=== PATIENT | female | born 1960 | race Caucasian/White ===

== ENCOUNTER 2020-04-19 02:27 | Observation (INO) | payer BC, SELFPAY ==
[2020-04-19] VITALS (18 sets, daily range): BP systolic 82–136; BP diastolic 41–89; PULSE 60–133; RESP 16–22; TEMP 36.3–37.6; O2SAT 98–100; BMI 41.8
--- NOTE | ~2020-04-19 | CT_ITS ---
EXAMINATION: CT abdomen pelvis w con DATE: 04/19/2020 03:29 INDICATION: Generalized abdominal pain. Blood in stool. TECHNIQUE: Computed tomography (CT) of the abdomen and pelvis was performed with 100 mL Omnipaque 350 intravenous contrast. Automated exposure control and iterative reconstruction technique were employe d. The dose-length product was 1481.64 mGy-cm. COMPARISON: CT abdomen and pelvis 07/16/2019, chest CT 12/10/2016 FINDINGS: The visualized portions of the lung bases demonstrate mild atelectasis. Again seen are innu merable pulmonary nodules measuring up to 4 mm, consistent with granulomatous disease. No pleural eff usion. The heart size is normal. No pericardial effusion. There is a small sliding hiatal hernia. The re is surgical changes of the stomach. The liver is normal. There are changes of cholecystectomy. The spleen, pancreas, adrenal glands, and kidneys are normal. There are no dilated loops of bowel. The a ppendix is not visualized. There are no pathologically enlarged lymph nodes. There is no free intrape ritoneal fluid. There is lumbar levocurvature and severe spondylosis. There are bridging endplate ost eophytes at multiple levels in the thoracic spine, consistent with diffuse idiopathic skeletal hypero stosis (DISH). IMPRESSION: 1. Small sliding hiatal hernia. Reviewed, dictated and finalized at location A.
--- NOTE | ~2020-04-19 | XR_ITS ---
EXAMINATION: XR small bowel follow through DATE: 04/20/2020 15:25 INDICATION: Gastrointestinal hemorrhage. TECHNIQUE: Oral contrast was administered, and a time course of radiographs of the abdomen was obtain ed. Fluoroscopy of the small bowel was performed. Fluoroscopy exposure time was 0.1 minutes. The tota l number of images was 14. COMPARISON: CT abdomen and pelvis 04/19/2020 FINDINGS: There are no dilated loops of bowel. There is no mass or stricture. There are changes of gastric bypa ss procedure. Transit time from the stomach to proximal colon was approximately 1.5 hours. IMPRESSION: 1. No etiology for gastrointestinal hemorrhage. Reviewed, dictated and finalized at location A.
--- NOTE | 2020-04-19 02:36 | ECG_ITS ---
Measurements Intervals [place] Rate: 124 P: CT: 0 QRS: 23 QRSD: 102 T: 67 QT: 318 QTc: 457 Interpretive Statements SINUS TACHYCARDIA EARLY PRECORDIAL R/S TRANSITION BASELINE ARTIFACT- I, III, AVL ABNORMAL ECG Electronically Signed On 04-19-2020 7:01:48 CDT by Coy Vizcaino D.O.
--- NOTE | 2020-04-19 02:36 | ED.GIBLEED ---
HPI - GI Bleed General Chief complaint: GI Bleed Stated complaint: sob, bloody stool, dizzy, abd pain Time Seen by Provider: 04/19/20 02:30 Source: RN notes reviewed History of Present Illness HPI Narrative: Patient presents emergency department from home for blood in stool. Patient states she is had 3 episodes of black tarry stool is had some blood mixed in this evening. States is associated with lower abdominal pain described as cramping. Patient states she is on Xarelto for history of DVT and PE denies any fevers or chills chest pain shortness of breath or any other symptoms Related Data Home Medications Medication Instructions Recorded Confirmed alprazolam 04/19/20 bupropion HCl mg PO 04/19/20 citalopram mg 04/19/20 ergocalciferol (vitamin D2) 04/19/20 gabapentin 04/19/20 hydrocodone-acetaminophen 04/19/20 lamotrigine 04/19/20 prednisone 04/19/20 rivaroxaban [Xarelto] mg 04/19/20 ropinirole mg 04/19/20 Allergies Allergy/AdvReac Type Severity Reaction Status Date / Time morphine Allergy Severe CHEST Verified 04/19/20 02:29 PAIN, VIOLENT NAUSEA AND VOMITING Review of Systems Review of Systems: Narrative: Gen.: Denies fevers or chills ENT: Denies congestion Respiratory: Denies shortness of breath or cough CV: Denies chest pain or palpitations GI: See HPI Musculoskeletal: Denies back pain or muscle pain Neuro: Denies numbness, tingling, weakness or focal weakness Skin: Denies rash Except as documented, all other systems reviewed and negative [facility] Past Medical History Medical History (Updated 04/19/20 @ 06:04 by Jonathon Pierre DO) Bipolar 1 disorder Pulmonary embolism Family History Family History (Updated 02/20/17 @ 23:56 by DOCTOR UNKNOWN) Father Hypertension Family history of elevated blood lipids Family history of diabetes mellitus in first degree relative Family history of coronary artery disease Patient's father is Family history of malignant neoplasm of esophagus Mother Hypertension Family history of elevated blood lipids Family history of diabetes mellitus in first degree relative Family history of coronary artery disease, Onset Age: 55 Patient's mother is Family history of congestive heart failure Sibling Hypertension Family history of elevated blood lipids Grandparent Cerebrovascular accident, Onset Age: 79 Carcinoma of colon, Onset Age: 35 Other Family history of tuberculosis Social History Social History (Updated 04/19/20 @ 02:38 by Jonathon Pierre DO) Smoking status: Former smoker Second hand tobacco smoke exposure: No Smoking end date: 11/16/02 Alcohol intake: never Exam Narrative: Exam Narrative: APPEARANCE: No acute distress, nontoxic, resting in bed HEENT: Normocephalic, atraumatic, OMM RESPIRATORY: No respiratory distress, clear to auscultation bilaterally with no rhonchi wheezing or rales CARDIOVASCULAR: RRR s murmur ABDOMINAL: Soft, nondistended diffusely tender to palpation no rebound or guarding Rectal: No hemorrhoids or fissures no active bleeding moderate amount of black stool that is Hemoccult positive MUSCULOSKELETAl: Moves all extremities. No clubbing, cyanosis or edema. NEURO: Awake and alert. Following commands, speech normal, no focal deficits SKIN:: Warm, dry. Normal Color PSYCHIATRIC: Normal affect/mood Course Course Emergency Course: Discussed with Dr. Duran presentation work-up. Agrees with consult at this time Discussed Dr. Rojas presentation work-up. Agrees with admission at this time Discussed with patient and family results of workup and diagnosis. Discussed need for admission. Patient and family understand and agree to current treatment plan Vital Signs Vital signs: Vital Signs Temperature 98.9 F 04/19/20 02:31 Pulse Rate 133 H 04/19/20 02:31 Respiratory Rate 20 04/19/20 02:31 Blood Pressure 105/65 04/19/20 02:31 Pulse
[2020-04-19] MEDS: SODIUM CHLORIDE 0.9% IV 1,000 ML 999 ML IV CONT ×2 (02:47→03:45)
[2020-04-19 02:54] LABS: Basophils Absolute Auto 0.1 K/mm3 (0.0-0.1); Basophils Percent Auto 0.8 % (0.2-1.2); Eosinophils Absolute Auto 0.2 K/mm3 (0-0.3); Eosinophils Percent Auto 1.4 % (0-4.4); Hematocrit 36.2 % (37.0-47.0); Hemoglobin 11.9 g/dL (12.0-15.0); Immature Granulocyte Absolute 0.14 K/mm3 (0.00-0.031); Immature Granulocyte Percent A 1.2 % (0-0.5); Lymphocytes Percent Auto 39.8 % (18.3-44.2); Mean Corpuscular HGB Conc 32.9 g/dl (32-36); Mean Corpuscular Hemoglobin 30.5 pg (26-34); Mean Corpuscular Volume 92.8 fl (80-100); Monocytes Absolute Auto 0.5 K/mm3 (0.1-0.6); Monocytes Percent Auto 4.7 % (2.6-8.5); Neutrophils Percent Auto 52.1 % (45.5-73.1); Platelet Count Result 290 k/mm3 (150-375); Red Cell Distribution Width 14.5 % (11.5-14.5); White Blood Count 11.6 K/mm3 (4.5-10.0)
[2020-04-19 03:07] LABS: Alanine Aminotransferase 18 U/L (4-35); Albumin Level 3.6 g/dL (3.5-5.1); Alkaline Phosphatase 74 U/L (38-126); Aspartate Amino Transferase 21 U/L (14-36); Bilirubin,Total 0.5 mg/dL (0.2-1.3); Blood Urea Nitrogen 31 mg/dL (7-17); Calcium 8.7 mg/dL (8.4-10.2); Carbon Dioxide 20 mmol/L (22-30); Chloride 109 mmol/L (98-107); Estimated CRCL calculation 96 ml/min; Estimated Glomerular Filt Rate > 60; Glucose 163 mg/dL (65-105); Lipase 267 U/L (23-300); Potassium 3.9 mmol/L (3.4-5.0); Sodium 137 mmol/L (137-145)
[2020-04-19 03:08] LABS: Lactic Acid Reflex 3.9 mmol/L (0.7-2.1)
[2020-04-19 03:10] LABS: Prothrombin Time 13.1 Seconds (11.1-14.7)
[2020-04-19 03:12] LABS: Partial Thromboplastin Time 22.6 SECONDS (22.3-36.8)
[2020-04-19] MEDS: ONDANSETRON INJ 4 MG/2 ML VIAL (03:45)
[2020-04-19 04:51] LABS: Add Urine Microscopic? NO; Appearance Urine Clear (Clear); Bilirubin Urine Negative (Negative); Blood Urine Negative (Negative); Color Urine Straw (Yellow); Glucose Urine UA Negative (Negative); Ketones Urine Negative (Negative); Leukocyte Esterase Ur Negative LEU/UL (Negative); Nitrate Urine Negative (Negative); Protein Urine Negative (Negative); Urobilinogen Urine Negative mg/dL (<2.0)
[2020-04-19 05:01] LABS: Specific Grav Ur 1.051 (1.001-1.035)
[2020-04-19] MEDS: PANTOPRAZOLE SODIUM IV 40 MG VIAL IV PUSH (05:29)
[2020-04-19] MEDS: MORPHINE SULFATE 2 MG/ML INJ IV PUSH (05:29)
[2020-04-19 05:51] LABS: Reflex Lactic Acid Yes or No Add Lactic
[2020-04-19] MEDS: SODIUM CHLORIDE 0.9% IV 1,000 ML 125 ML IV CONT ×2 (06:39→16:05)
--- NOTE | 2020-04-19 06:53 | ADMGEN ---
This patient, Hussain Hankins, was admitted to [facility] Surg Room 324-02. Patient/family oriented to hospital policies and general routines including ID bracelet, bed and alarms, visiting hours, pain management, procedures, bathroom and other care routines, personal items, smoking policy, room service/diet, and visiting hours. Valuables list has been completed. Information on how to activate the Rapid Response Team has been discussed. Patient/Family are encouraged to report perceived risks to care and to ask questions if they do not understand what they are told or what they should do.
[2020-04-19 07:14] LABS: Hematocrit 29.3 % (37.0-47.0); Hemoglobin 9.7 g/dL (12.0-15.0)
[2020-04-19 07:28] LABS: Lactic Acid 0.9 mmol/L (0.7-2.1)
--- NOTE | 2020-04-19 08:13 | WPDGICN ---
Assessment and Plan Assessment and plan (1) GI bleed: Code(s): K92.2 - Gastrointestinal hemorrhage, unspecified Status: Acute Assessment and Plan: Patient has had GI bleeding. Appears to be related to upper GI source given the black melenic stools. Plan is for proton pump inhibitor therapy. Follow hemoglobin. An EGD will be planned. Elective colonoscopy for screening is advised a a later date less EGD is non fruitful. (2) Bipolar 1 disorder: Code(s): F31.9 - Bipolar disorder, unspecified Status: Acute (3) History of gastric bypass: Code(s): Z98.84 - Bariatric surgery status Status: Acute GI Consult Note Consult date/time: 04/19/20 08:13 HPI: Hussain Hankins is a 59 year old female Seen in evaluation at the request of the hospitalist service. Patient in usual state of health until last evening when she began to pass black melenic stools. she has continued to have black diarrhea stools throughout the evening. For this reason she presented to the emergency room. She was found to have slightly decreased hemoglobin and Hemoccult-positive melenic stools. She denies abdominal pain. Her past medical history is significant for gastric bypass surgery many years ago. Patient has a past history of back pain recently was on a tapering dose of prednisone. Family history is noncontributory. Review of Systems Review of Systems: All systems reviewed & are unremarkable except as noted in HPI and below PMFSH Past Medical History Medical History Bipolar 1 disorder Pulmonary embolism Family History Family History Father Hypertension Family history of elevated blood lipids Family history of diabetes mellitus in first degree relative Family history of coronary artery disease Patient's father is Family history of malignant neoplasm of esophagus Mother Hypertension Family history of elevated blood lipids Family history of diabetes mellitus in first degree relative Family history of coronary artery disease, Onset Age: 55 Patient's mother is Family history of congestive heart failure Sibling Hypertension Family history of elevated blood lipids Grandparent Cerebrovascular accident, Onset Age: 79 Carcinoma of colon, Onset Age: 35 Other Family history of tuberculosis Social History Social History Smoking status: Former smoker Second hand tobacco smoke exposure: No Smoking end date: 11/16/02 Alcohol intake: never Substance use: never Gender identity (if verbalized by the patient): Female Spiritual care concerns: No Meds Home Medications and Allergies Home Medications Medication Instructions Recorded Confirmed Type alprazolam 0.25 mg PO Q6H PRN 04/19/20 04/19/20 History bupropion HCl 450 mg PO DAILY 04/19/20 04/19/20 History citalopram 40 mg PO HS 04/19/20 04/19/20 History cyanocobalamin (vitamin B-12) 2,000 mcg PO HS 04/19/20 04/19/20 History ergocalciferol (vitamin D2) 80,000 unit PO WEEKLY 04/19/20 04/19/20 History gabapentin 300 mg PO HS 04/19/20 04/19/20 History hydrocodone-acetaminophen 0.5 tablet PO Q4H PRN 04/19/20 04/19/20 History lamotrigine 100 mg PO HS 04/19/20 04/19/20 History prednisone 10 mg PO DAILY 04/19/20 04/19/20 History rivaroxaban [Xarelto] 10 mg PO HS 04/19/20 04/19/20 History ropinirole 1 mg PO HS 04/19/20 04/19/20 History Allergies Allergy/AdvReac Type Severity Reaction Status Date / Time morphine Allergy Severe CHEST Verified 04/19/20 02:29 PAIN, VIOLENT NAUSEA AND VOMITING Vital Signs Vital Signs - 24 hr 04/19/20 02:31 04/19/20 03:17 04/19/20 03:44 Temperature 37.2 C Pulse Rate 133 H 111 H 80 Respiratory Rate 20 22 H 18 Blood Pressure 105/65 100/59 L 126/56 L Pulse Oximetry 100 100 100 0
--- NOTE | 2020-04-19 09:02 | PC.NURSE ---
to GI lab per stretcher. iv running.
[2020-04-19] MEDS: LACTATED RINGERS 1,000 ML 150 ML IV CONT (09:32)
--- NOTE | 2020-04-19 09:36 | WPDANESEPPF ---
Anes - Initial Pre Proc Eval Procedure: Operation Date: 04/19/20 09:00 Proposed Procedures p Esophagogastroduodenoscopy - Luis Duran MD Date/Time: 04/19/20 09:36 Surgeon: Tala Rojas DO Pre Op Diagnosis: GI bleed, R sided kidney stone Patient Data Age: 59 Gender: F Height: 5 ft 9 in Weight: 128.6 kg Last Vital Signs Temp 97.3 F L 04/19/20 09:15 Pulse 70 04/19/20 09:15 Resp 16 04/19/20 09:15 BP 126/56 L 04/19/20 09:15 Pulse Ox 99 04/19/20 09:15 Allergies Allergy/AdvReac Type Severity Reaction Status Date / Time morphine Allergy Severe CHEST Verified 04/19/20 09:21 PAIN, VIOLENT NAUSEA AND VOMITING Home Medications Medication Instructions Recorded Confirmed Type alprazolam 0.25 mg PO Q6H PRN 04/19/20 04/19/20 History bupropion HCl 450 mg PO DAILY 04/19/20 04/19/20 History citalopram 40 mg PO HS 04/19/20 04/19/20 History cyanocobalamin (vitamin B-12) 2,000 mcg PO HS 04/19/20 04/19/20 History ergocalciferol (vitamin D2) 80,000 unit PO WEEKLY 04/19/20 04/19/20 History gabapentin 300 mg PO HS 04/19/20 04/19/20 History hydrocodone-acetaminophen 0.5 tablet PO Q4H PRN 04/19/20 04/19/20 History lamotrigine 100 mg PO HS 04/19/20 04/19/20 History prednisone 10 mg PO DAILY 04/19/20 04/19/20 History rivaroxaban [Xarelto] 10 mg PO HS 04/19/20 04/19/20 History ropinirole 1 mg PO HS 04/19/20 04/19/20 History Laboratory Tests 04/19/20 04/19/20 04/19/20 02:45 02:45 02:45 WBC 11.6 K/mm3 H K/mm3 (4.5-10.0) RBC 3.90 M/mm3 L M/mm3 (4.2-5.4) Hgb 11.9 g/dL L g/dL (12.0-15.0) Hct 36.2 % L % (37.0-47.0) MCV 92.8 fl fl (80-100) MCH 30.5 pg pg (26-34) MCHC 32.9 g/dl g/dl (32-36) RDW 14.5 % % (11.5-14.5) Plt Count 290 k/mm3 k/mm3 (150-375) MPV 11.0 fl H fl (7.4-10.4) Immature Gran % (Auto) 1.2 % H % (0-0.5) Neut % (Auto) 52.1 % % (45.5-73.1) Lymph % (Auto) 39.8 % % (18.3-44.2) [place] % (Auto) 4.7 % % (2.6-8.5) Eos % (Auto) 1.4 % % (0-4.4) Baso % (Auto) 0.8 % % (0.2-1.2) Lymph # (Auto) 4.60 K/mm3 H K/mm3 (0.9-3.2) [place] # (Auto) 0.5 K/mm3 K/mm3 (0.1-0.6) Eos # (Auto) 0.2 K/mm3 K/mm3 (0-0.3) Baso # (Auto) 0.1 K/mm3 K/mm3 (0.0-0.1) Abs Immat Gran (auto) 0.14 K/mm3 H K/mm3 (0.00-0.031) Absolute Neuts (auto) 6.0 K/mm3 K/mm3 (1.3-6.7) Absolute Nucleated RBC 0.0 K/mm3 K/mm3 (0.0-0.012) Nucleated RBC % 0.0 % % (0.0-0.2) PT 13.1 Seconds Seconds (11.1-14.7) INR 1.0 APTT 22.6 SECONDS SECONDS (22.3-36.8) Sodium 137 mmol/L mmol/L (137-145) Potassium 3.9 mmol/L mmol/L (3.4-5.0) Chloride 109 mmol/L H mmol/L (98-107) Carbon Dioxide 20 mmol/L L mmol/L (22-30) BUN 31 mg/dL H mg/dL (7-17) Creatinine 0.80 mg/dL mg/dL (0.7-1.0) Estim Creat Clear Calc 96 ml/min ml/min Estimated GFR > 60 (59 - ) Glucose 163 mg/dL H mg/dL (65-105) Lactic Acid Calcium 8.7 mg/dL mg/dL (8.4-10.2) Total Bilirubin 0.5 mg/dL mg/dL (0.2-1.3) AST 21 U/L U/L (14-36) ALT 18 U/L U/L (4-35) Alkaline Phosphatase 74 U/L U/L (38-126) Total Protein 6.0 g/dL L g/dL (6.3-8.2) Albumin 3.6 g/dL g/dL (3.5-5.1) Lipase 267 U/L U/L (23-300) Urine Color Urine Appearance Urine pH Ur Specific [place] Urine Protein Urine Glucose (UA) Urine Ketones Ur Blood (Man) Urine Nitrate Urine Bilirubin Urine Urobilinogen Leukocyte Esterase Rfl Blood Type Antibody Screen
[2020-04-19] MEDS: SIMETHICONE ORAL SUSPENSION 20 MG/0.3 ML 30 ML BOTTLE 0.6 ML PO (09:56)
--- NOTE | 2020-04-19 10:55 | PC.NURSE ---
patient returned to room from GI lab
--- NOTE | 2020-04-19 11:37 | PM.IMHP ---
H&P: HPI History of Present Illness Chief complaint: GI bleed, R sided kidney stone Narrative: Date and Time of History and Physical: April 19, 2020 at 10:55 a.m.. Date and Time of Placement in Observation Order: April 19, 2020 at 5:56 a.m.. Chief Complaint: Diarrhea with black and bloody stools. History of Present Illness: Hussain Hankins is a 59 year old female with known previous gastric bypass, bipolar disorder, chronic back issues and history kidney stones presented to the emergency room with onset diarrhea yesterday. Patient reports stool initially was black but by the 3rd episode of diarrhea she noted blood in the stool. She does mention having ongoing problems with her back within the past week and was started on a prednisone taper by Dr. La, her primary physician. She reports 4 days into the prednisone taper she developed the diarrhea. She also reports a soreness and pressure in her abdomen feeling as though she has been ?punched in the stomach?. She does have nausea but no vomiting. She does also report having a vibration sensation on the left side of her abdomen but this has been present since having lithotripsy a few years ago. She reports a longstanding history of frequently urinating with some incontinence. No hematuria or dysuria. She does also mention checking her temperature this morning prior to going to work as it is required with the current pandemic. Her initial temperature was 95?. On recheck temperature is 100.7? then decreased to 99.7 subsequently. No cough or shortness of breath. She does mention having an odd taste in her mouth over the past 24 hours. She is on Xarelto for her history of pulmonary embolism x2. In the emergency room, findings were concerning for GI bleed. There is also concern for possible kidney stone. As result, she was placed in observation for further evaluation and treatment. Review of Systems Review of Systems: All systems reviewed & are unremarkable except as noted in HPI and below Constitutional: Constitutional: Denies chills and Reports fever(s) (low grade this morning at home) Eyes: Eyes: Denies blurry vision and Denies diplopia ENT: Denies dysphagia and Denies epistaxis Cardiovascular: Cardiovascular: Denies chest pain and Denies palpitations Respiratory: Respiratory: Denies cough, Denies hemoptysis and Denies dyspnea Gastrointestinal: Gastrointestinal: Reports abdominal pain, Reports melena, Reports hematochezia, Reports diarrhea, Reports nausea and Denies vomiting Genitourinary: Genitourinary: Denies hematuria, Reports nocturia, Denies dysuria and Reports urinary incontinence Musculoskeletal: Musculoskeletal: Reports back pain (chronic) Integumentary/Breasts: Skin/Breast: Denies rash Neurologic: Denies headache(s) Psychiatric: Psychiatric: Denies confusion Endocrine: Endocrine: Reports no additional endocrine complaints Hematologic/Lymphatic: Hematologic/Lymphatic: Reports no additional hematologic/lymphatic complaints Allergic/Immunologic: Allergic/Immunologic: Reports no additional allergic/immunologic complaints [facility] Past Medical History Medical History (Updated 04/19/20 @ 11:59 by Kavita Lozano MD) Bipolar 1 disorder Deep vein thrombophlebitis of leg Peripheral neuropathy Pulmonary embolism Surgical History Surgical History H/O laminectomy H/O: hysterectomy History of appendectomy History of bladder suspension procedure History of gastric bypass Family History Family History Father Hypertension Family history of elevated blood lipids Family history of diabetes mellitus in first degree relative Family history of coronary artery disease Patient's father is Family history of malignant neoplasm of esophagus Mother Hypertension Family history of elevated blood lipids Family history of diabetes mellitus in
[2020-04-19 14:11] LABS: Hematocrit 28.5 % (37.0-47.0); Hemoglobin 9.3 g/dL (12.0-15.0)
[2020-04-19] MEDS: PEG (High)/E-LYTE SOLN 4,000 ML BTL 4000 ML PO (16:05)
[2020-04-19] MEDS: TOLNAFTATE 1% POWDER 45 GM BTL 1 APPLIC TOPICAL (17:39)
[2020-04-19 20:39] LABS: Hematocrit 28.2 % (37.0-47.0); Hemoglobin 9.2 g/dL (12.0-15.0)
[2020-04-19] MEDS: FAMOTIDINE 20 MG TABLET PO (21:44)
[2020-04-19] MEDS: lamoTRIgine 100 MG TABLET PO (21:44)
[2020-04-19] MEDS: GABAPENTIN 300 MG CAPSULE PO (21:44)
[2020-04-19] MEDS: CYANOCOBALAMIN 1,000 MCG TABLET 2000 MCG PO (21:44)
[2020-04-19] MEDS: CITALOPRAM HYDROBROMIDE 20 MG TABLET 40 MG PO (21:44)
[2020-04-20] VITALS (13 sets, daily range): BP systolic 95–118; BP diastolic 42–58; PULSE 64–85; RESP 15–23; TEMP 36.9–37.3; O2SAT 96–100
[2020-04-20] MEDS: SODIUM CHLORIDE 0.9% IV 1,000 ML 125 ML IV CONT ×3 (00:49→20:42)
[2020-04-20 05:59] LABS: Basophils Absolute Auto 0.1 K/mm3 (0.0-0.1); Basophils Percent Auto 0.7 % (0.2-1.2); Eosinophils Absolute Auto 0.2 K/mm3 (0-0.3); Eosinophils Percent Auto 2.9 % (0-4.4); Hematocrit 27.1 % (37.0-47.0); Hemoglobin 8.8 g/dL (12.0-15.0); Immature Granulocyte Absolute 0.05 K/mm3 (0.00-0.031); Immature Granulocyte Percent A 0.7 % (0-0.5); Lymphocytes Absolute Auto 2.54 K/mm3 (0.9-3.2); Mean Corpuscular HGB Conc 32.5 g/dl (32-36); Mean Corpuscular Volume 92.5 fl (80-100); Mean Platelet Volume 11.1 fl (7.4-10.4); Monocytes Absolute Auto 0.4 K/mm3 (0.1-0.6); Monocytes Percent Auto 6.1 % (2.6-8.5); Neutrophils Percent Auto 54.6 % (45.5-73.1); Platelet Count Result 195 k/mm3 (150-375); Red Blood Count 2.93 M/mm3 (4.2-5.4); Red Cell Distribution Width 14.3 % (11.5-14.5); White Blood Count 7.3 K/mm3 (4.5-10.0)
--- NOTE | 2020-04-20 06:00 | PC.NURSE ---
Bowel prep not complete. notified. States that it is ok for patient to complete this am. Patient aware of need to complete bowel prep.
[2020-04-20 06:21] LABS: Alanine Aminotransferase 14 U/L (4-35); Albumin Level 2.8 g/dL (3.5-5.1); Alkaline Phosphatase 68 U/L (38-126); Aspartate Amino Transferase 22 U/L (14-36); Bilirubin,Total 0.7 mg/dL (0.2-1.3); Blood Urea Nitrogen 9 mg/dL (7-17); Calcium 7.9 mg/dL (8.4-10.2); Carbon Dioxide 24 mmol/L (22-30); Chloride 112 mmol/L (98-107); Estimated CRCL calculation 147 ml/min; Estimated Glomerular Filt Rate > 60; Glucose 86 mg/dL (65-105); Potassium 3.9 mmol/L (3.4-5.0); Sodium 136 mmol/L (137-145)
--- NOTE | 2020-04-20 08:12 | WPDANESEPPF ---
Anes - Initial Pre Proc Eval Procedure: Operation Date: 04/20/20 11:30 Proposed Procedures p Colonoscopy - Luis Duran MD Date/Time: 04/20/20 08:12 Surgeon: Tala Rojas DO Pre Op Diagnosis: GI bleed, R sided kidney stone Patient Data Age: 59 Gender: F Height: 1.75 m Weight: 128.6 kg Last Vital Signs Temp 37.3 C 04/20/20 06:00 Pulse 82 04/20/20 06:00 Resp 20 04/20/20 06:00 BP 113/42 L 04/20/20 06:00 Pulse Ox 97 04/20/20 06:00 Allergies Allergy/AdvReac Type Severity Reaction Status Date / Time morphine Allergy Severe CHEST Verified 04/19/20 09:21 PAIN, VIOLENT NAUSEA AND VOMITING Home Medications Medication Instructions Recorded Confirmed Type alprazolam 0.25 mg PO Q6H PRN 04/19/20 04/19/20 History bupropion HCl 450 mg PO DAILY 04/19/20 04/19/20 History citalopram 40 mg PO HS 04/19/20 04/19/20 History cyanocobalamin (vitamin B-12) 2,000 mcg PO HS 04/19/20 04/19/20 History ergocalciferol (vitamin D2) 80,000 unit PO WEEKLY 04/19/20 04/19/20 History gabapentin 300 mg PO HS 04/19/20 04/19/20 History hydrocodone-acetaminophen 0.5 tablet PO Q4H PRN 04/19/20 04/19/20 History lamotrigine 100 mg PO HS 04/19/20 04/19/20 History prednisone 10 mg PO DAILY 04/19/20 04/19/20 History rivaroxaban [Xarelto] 10 mg PO HS 04/19/20 04/19/20 History ropinirole 1 mg PO HS 04/19/20 04/19/20 History Laboratory Tests 04/19/20 04/19/20 04/20/20 13:44 19:58 05:42 WBC 7.3 K/mm3 K/mm3 (4.5-10.0) RBC 2.93 M/mm3 L M/mm3 (4.2-5.4) Hgb 9.3 g/dL L g/dL 9.2 g/dL L g/dL 8.8 g/dL L g/dL (12.0-15.0) (12.0-15.0) (12.0-15.0) Hct 28.5 % L % 28.2 % L % 27.1 % L % (37.0-47.0) (37.0-47.0) (37.0-47.0) MCV 92.5 fl fl (80-100) MCH 30.0 pg pg (26-34) MCHC 32.5 g/dl g/dl (32-36) RDW 14.3 % % (11.5-14.5) Plt Count 195 k/mm3 k/mm3 (150-375) MPV 11.1 fl H fl (7.4-10.4) Immature Gran % (Auto) 0.7 % H % (0-0.5) Neut % (Auto) 54.6 % % (45.5-73.1) Lymph % (Auto) 35.0 % % (18.3-44.2) [place] % (Auto) 6.1 % % (2.6-8.5) Eos % (Auto) 2.9 % % (0-4.4) Baso % (Auto) 0.7 % % (0.2-1.2) Lymph # (Auto) 2.54 K/mm3 K/mm3 (0.9-3.2) [place] # (Auto) 0.4 K/mm3 K/mm3 (0.1-0.6) Eos # (Auto) 0.2 K/mm3 K/mm3 (0-0.3) Baso # (Auto) 0.1 K/mm3 K/mm3 (0.0-0.1) Abs Immat Gran (auto) 0.05 K/mm3 H K/mm3 (0.00-0.031) Absolute Neuts (auto) 4.0 K/mm3 K/mm3 (1.3-6.7) Absolute Nucleated RBC 0.0 K/mm3 K/mm3 (0.0-0.012) Nucleated RBC % 0.0 % % (0.0-0.2) Sodium Potassium Chloride Carbon Dioxide BUN Creatinine Estim Creat Clear Calc Estimated GFR Glucose Calcium Total Bilirubin AST ALT Alkaline Phosphatase Total Protein Albumin 04/20/20 05:42 WBC RBC Hgb Hct MCV MCH MCHC RDW Plt Count MPV Immature Gran % (Auto) Neut % (Auto) Lymph % (Auto) [place] % (Auto) Eos % (Auto) Baso % (Auto) Lymph # (Auto) [place] # (Auto) Eos # (Auto) Baso # (Auto) Abs Immat Gran (auto) Absolute Neuts (auto) Absolute Nucleated RBC Nucleated RBC % Sodium 136 mmol/L L mmol/L (137-145) Potassium 3.9 mmol/L mmol/L (3.4-5.0) Chloride 112 mmol/L H mmol/L (98-107) Carbon Dioxide 24 mmol/L mmol/L (22-30) BUN 9 mg/dL D mg/dL (7-17) Creatinine 0.50 mg/dL L mg/dL (0.7-1.0) Estim Creat Clear Calc 147 ml/min ml/min Estimated GFR > 60 (59 - ) Glucose 86 mg/dL mg/dL (65-105) Calcium 7.9 mg/dL L mg/dL
[2020-04-20] MEDS: FAMOTIDINE 20 MG TABLET PO ×2 (08:44→20:39)
[2020-04-20] MEDS: buPROPion HCL XL (24 HR) 150 MG TABCR 450 MG PO (08:44)
[2020-04-20] MEDS: ONDANSETRON INJ 4 MG/2 ML VIAL IV PUSH (09:31)
[2020-04-20] MEDS: LACTATED RINGERS 1,000 ML 150 ML IV CONT (12:46)
--- NOTE | 2020-04-20 13:51 | SUR.PHASEII ---
CALLED REJI TO INFORM HER THAT PATIENT WAS GOING STRAIGHT TO RADIOLOGY 3980 TOOK PATIENT TO RADIOLOGY AND HANDED OFF PATIENT TO TASNEEM
--- NOTE | 2020-04-20 14:03 | PCDIET ---
To GI Lab per [stretcher ], IV [saline locked] on 04/20/2020 at 1230.
[2020-04-20 18:49] LABS: Blood Urea Nitrogen 6 mg/dL (7-17); Carbon Dioxide 22 mmol/L (22-30); Chloride 110 mmol/L (98-107); Estimated CRCL calculation 109 ml/min; Estimated Glomerular Filt Rate > 60; Glucose 158 mg/dL (65-105); Magnesium 1.9 mg/dL (1.6-2.3); Potassium 3.8 mmol/L (3.4-5.0); Sodium 138 mmol/L (137-145)
[2020-04-20] MEDS: CYANOCOBALAMIN 1,000 MCG TABLET 2000 MCG PO (20:38)
[2020-04-20] MEDS: CITALOPRAM HYDROBROMIDE 20 MG TABLET 40 MG PO (20:38)
[2020-04-20] MEDS: GABAPENTIN 300 MG CAPSULE PO (20:38)
[2020-04-20] MEDS: lamoTRIgine 100 MG TABLET PO (20:39)
[2020-04-20] MEDS: TOLNAFTATE 1% POWDER 45 GM BTL 1 APPLIC TOPICAL (20:42)
--- NOTE | 2020-04-20 20:47 | PM.IMPN ---
Progress Note: A&P Assessment and Plan (1) GI bleed: Qualifiers: GI bleed type/associated pathology: unspecified gastrointestinal hemorrhage type Qualified Code(s): K92.2 - Gastrointestinal hemorrhage, unspecified Code(s): K92.2 - Gastrointestinal hemorrhage, unspecified Status: Acute Assessment and Plan: CT abdomen/pelvis with small sliding hiatal hernia. GI consulted and appreciate input. Patient is now status post EGD by Dr. Duran with esophageal erosion without bleeding seen. Colonoscopy today revealed nonbleeding internal hemorrhoids. SBFT unremarkable. Patient was recently on prednisone for back pain which has now been stopped. Home Xarelto for history of pulmonary embolism x2 also stopped. Hemoglobin has dropped from 11.9-8.8 Will continue to monitor. Continue IV fluids. Blood pressure low normal stable. (2) Esophageal erosions: Code(s): K22.10 - Ulcer of esophagus without bleeding Status: Acute Assessment and Plan: As seen on EGD without bleeding. Continue oral Pepcid. (3) Acidosis, lactic: Code(s): E87.2 - Acidosis Status: Acute Assessment and Plan: Probably was result of dehydration with lactic acid normal on recheck. Remains on IV fluids. No sign of bacterial infection at this time. (4) History of gastric bypass: Code(s): Z98.84 - Bariatric surgery status Status: Acute Assessment and Plan: Appears intact by EGD. Will continue home vitamin B12. (5) Pulmonary embolism: Qualifiers: Pulmonary embolism type: unspecified Chronicity: unspecified Acute cor pulmonale presence: unspecified Qualified Code(s): I26.99 - Other pulmonary embolism without acute cor pulmonale Code(s): I26.99 - Other pulmonary embolism without acute cor pulmonale Status: Acute Assessment and Plan: Patient with history of pulmonary embolism x2. Home Xarelto on hold with GI bleed. Will need to monitor. Presently on room air. (6) Bipolar 1 disorder: Code(s): F31.9 - Bipolar disorder, unspecified Status: Acute Assessment and Plan: Mood presently stable. With colonoscopy completed, will resume home alprazolam, bupropion and citalopram. Will also resume home lamotrigine. Will monitor. Subjective Date/time seen: 04/20/20 1500 Interval history: Ms. Hankins is a 59yo F admitted for melanotic stools and anemia. She is seen in follow up this afternoon after just returning from GI lab and she complains of a headache which she attributes to lack of caffeine. She is hungry. No further black BMs today but she also had colon prep. She denies chest pain or shortness of breath, just hungry. Review of Systems Review of Systems: Narrative: Twelve systems were reviewed with pertinent positives and negatives as per HPI. Exam Narrative: Exam Narrative: General: Female resting supine in bed in no acute distress. HEENT: Normocephalic, EOMI, oral mucosa tacky. Cardiovascular: Rate and rhythm are regular. Respiratory: Lungs clear to auscultation all [place]. Non-labored breathing. Abdomen: Soft, non-tender, non-distended, bowel sounds present. Extremities: Peripheral pulses intact. No edema. Neuro: No focal neurological deficits. Speech is clear. Objective Data Vital Signs Vital Signs: Last Vital Signs Temp 98.5 F 04/20/20 12:42 Pulse 64 04/20/20 16:00 Resp 15 04/20/20 13:40 BP 101/48 L 04/20/20 13:40 Pulse Ox 98 04/20/20 13:40 Intake/Output Intake/Output: Intake & Output 04/17/20 04/18/20 04/19/20 04/20/20 23:59 23:59 23:59 23:59 Intake Total 5260 4540 Output Total 650 Balance 4610 4540 Meds/Results Medications: Active Medications Generic Name Dose Route Start Last Admin Trade Name Freq PRN Reason Stop Dose Admin Alprazolam 0.25 mg 04/19/20 11:58 Xanax PO Q6H PRN Anxiety Bupropion HCl 450 mg 04/19/20 09:00 04/20/20 08:44 Wellbutrin
[2020-04-20] MEDS: ALPRAZOLAM 0.25 MG TABLET PO (23:55)
[2020-04-21] VITALS: PULSE 101
[2020-04-21 04:00] VITALS: PULSE 89
[2020-04-21 06:00] VITALS: BP 128/40; PULSE 86; RESP 20; TEMP 37.1; O2SAT 95
[2020-04-21 06:23] LABS: Basophils Percent Auto 0.6 % (0.2-1.2); Eosinophils Absolute Auto 0.2 K/mm3 (0-0.3); Eosinophils Percent Auto 2.5 % (0-4.4); Hematocrit 25.3 % (37.0-47.0); Hemoglobin 8.2 g/dL (12.0-15.0); Immature Granulocyte Absolute 0.05 K/mm3 (0.00-0.031); Immature Granulocyte Percent A 0.8 % (0-0.5); Immature Platelet Fraction Pct 2.5 % (0.9-11.2); Lymphocytes Absolute Auto 2.06 K/mm3 (0.9-3.2); Lymphocytes Percent Auto 32.4 % (18.3-44.2); Mean Corpuscular HGB Conc 32.4 g/dl (32-36); Mean Corpuscular Hemoglobin 30.9 pg (26-34); Mean Corpuscular Volume 95.5 fl (80-100); Mean Platelet Volume 11.2 fl (7.4-10.4); Monocytes Absolute Auto 0.6 K/mm3 (0.1-0.6); Monocytes Percent Auto 9.9 % (2.6-8.5); Neutrophils Absolute Auto 3.4 K/mm3 (1.3-6.7); Neutrophils Percent Auto 53.8 % (45.5-73.1); Nucleated Red Blood Cells Perc 0.5 % (0.0-0.2); Platelet Count Result 171 k/mm3 (150-375); Red Blood Count 2.65 M/mm3 (4.2-5.4); Red Cell Distribution Width 14.7 % (11.5-14.5); White Blood Count 6.4 K/mm3 (4.5-10.0)
[2020-04-21 06:44] LABS: Transferrin 197 mg/dL (206-381)
[2020-04-21 06:48] LABS: Blood Urea Nitrogen 8 mg/dL (7-17); Calcium 7.5 mg/dL (8.4-10.2); Carbon Dioxide 24 mmol/L (22-30); Chloride 111 mmol/L (98-107); Estimated CRCL calculation 125 ml/min; Estimated Glomerular Filt Rate > 60; Glucose 97 mg/dL (65-105); Sodium 136 mmol/L (137-145)
[2020-04-21 07:00] LABS: Iron 20 ug/dL (37-170)
[2020-04-21 07:09] LABS: Percent Iron Saturation 7 % (20-50)
[2020-04-21 08:00] VITALS: PULSE 91
--- NOTE | 2020-04-21 08:02 | P.PNAN_ITS ---
Anes - Prog Note Post-Op Date/Time: 04/21/20 08:02 Cardiovascular status: normal Respiratory status: normal Airway patency: baseline Mental status: baseline Post-Op hydration status: normal Vital Signs: Last Vital Signs Temp 37.1 C 04/21/20 06:00 Pulse 86 04/21/20 06:00 Resp 20 04/21/20 06:00 BP 128/40 L 04/21/20 06:00 Pulse Ox 95 04/21/20 06:00 I/O: Intake & Output 04/20/20 04/21/20 04/21/20 23:59 07:59 15:59 Intake Total 1240 500 Output Total 800 Balance 1240 -300 Laboratory Tests 04/21/20 06:09 04/21/20 06:09 04/20/20 04/21/20 04/21/20 18:26 06:09 06:09 WBC 6.4 RBC 2.65 L Hgb 8.2 L Hct 25.3 L MCV 95.5 MCH 30.9 MCHC 32.4 RDW 14.7 H Plt Count 171 MPV 11.2 H Immature Gran % (Auto) 0.8 H Neut % (Auto) 53.8 Lymph % (Auto) 32.4 [place] % (Auto) 9.9 H Eos % (Auto) 2.5 Baso % (Auto) 0.6 Lymph # (Auto) 2.06 [place] # (Auto) 0.6 Eos # (Auto) 0.2 Baso # (Auto) 0.0 Abs Immat Gran (auto) 0.05 H Absolute Neuts (auto) 3.4 Absolute Nucleated RBC 0.0 Nucleated RBC % 0.5 H % Immature Plt Fraction 2.5 Sodium 138 136 L Potassium 3.8 4.0 Chloride 110 H 111 H Carbon Dioxide 22 24 BUN 6 L 8 Creatinine 0.70 0.60 L Estim Creat Clear Calc 109 125 Estimated GFR > 60 > 60 Glucose 158 H 97 Calcium 8.0 L 7.5 L Magnesium 1.9 2.0 Iron TIBC % Saturation Transferrin 197 L Ferritin 04/21/20 06:09 WBC RBC Hgb Hct MCV MCH MCHC RDW Plt Count MPV Immature Gran % (Auto) Neut % (Auto) Lymph % (Auto) [place] % (Auto) Eos % (Auto) Baso % (Auto) Lymph # (Auto) [place] # (Auto) Eos # (Auto) Baso # (Auto) Abs Immat Gran (auto) Absolute Neuts (auto) Absolute Nucleated RBC Nucleated RBC % % Immature Plt Fraction Sodium Potassium Chloride Carbon Dioxide BUN Creatinine Estim Creat Clear Calc Estimated GFR Glucose Calcium Magnesium Iron 20 L TIBC 270 % Saturation 7 L Transferrin Ferritin 15.80 Post-procedural complaints: none Patient Feedback: Patient satisfied with anesthetic care.
[2020-04-21] MEDS: FAMOTIDINE 20 MG TABLET PO (08:14)
[2020-04-21] MEDS: buPROPion HCL XL (24 HR) 150 MG TABCR 450 MG PO (08:14)
[2020-04-21] MEDS: TOLNAFTATE 1% POWDER 45 GM BTL 1 APPLIC TOPICAL (08:14)
[2020-04-21 12:00] VITALS: PULSE 78
--- NOTE | 2020-04-21 12:23 | PM.IMPN ---
Progress Note: A&P Assessment and Plan (1) GI bleed: Qualifiers: GI bleed type/associated pathology: unspecified gastrointestinal hemorrhage type Qualified Code(s): K92.2 - Gastrointestinal hemorrhage, unspecified Code(s): K92.2 - Gastrointestinal hemorrhage, unspecified Status: Acute Assessment and Plan: CT abdomen/pelvis with small sliding hiatal hernia. GI consulted and appreciate input. Patient is now status post EGD by Dr. Duran with esophageal erosion without bleeding seen. Colonoscopy revealed nonbleeding internal hemorrhoids. SBFT unremarkable. Tapering prednisone stopped on admission. Xarelto has been on hold. Discussed with patient waiting to restart Xarelto until about 1 week out from GI bleed. Will also need to follow-up with her primary physician. Blood pressure review on 04/21/2020 and in normal range. Will discharge home today. (2) Esophageal erosions: Code(s): K22.10 - Ulcer of esophagus without bleeding Status: Acute Assessment and Plan: As seen on EGD without bleeding. Continue oral Pepcid. (3) Acidosis, lactic: Code(s): E87.2 - Acidosis Status: Acute Assessment and Plan: Probably was result of dehydration with lactic acid normal on recheck. No sign of bacterial infection at this time. (4) History of gastric bypass: Code(s): Z98.84 - Bariatric surgery status Status: Acute Assessment and Plan: Appears intact by EGD. Will continue home vitamin B12. (5) Pulmonary embolism: Qualifiers: Acute cor pulmonale presence: unspecified Chronicity: unspecified Pulmonary embolism type: unspecified Qualified Code(s): I26.99 - Other pulmonary embolism without acute cor pulmonale Code(s): I26.99 - Other pulmonary embolism without acute cor pulmonale Status: Acute Assessment and Plan: Patient with history of pulmonary embolism x2. Home Xarelto on hold with GI bleed. Remains on room air. Plan to resume Xarelto as outpatient. (6) Bipolar 1 disorder: Code(s): F31.9 - Bipolar disorder, unspecified Status: Acute Assessment and Plan: Mood stable. Continue home alprazolam, bupropion and citalopram. Will also continue home lamotrigine. Time Spent With Patient Time with patient: 15 - 25 minutes Subjective Date/time seen: 04/21/20 12:23 Interval history: Date of Service: 04/21/2020. Admitted with GI bleed. Patient had recently been on steroids for back pain but also takes Xarelto for history of pulmonary embolism x2. Sleeping but easily awakened. Complains of headache but no further dark or bloody stools. No nausea or vomiting. No abdominal pain. No chest pain. No shortness of breath. Review of Systems Constitutional: Constitutional: Denies chills and Denies fever(s) ENT: Denies epistaxis Cardiovascular: Cardiovascular: Denies chest pain Respiratory: Respiratory: Denies dyspnea Gastrointestinal: Gastrointestinal: Denies abdominal pain, Denies melena, Denies hematochezia, Denies constipation, Denies heartburn, Denies diarrhea, Denies nausea and Denies vomiting Genitourinary: Genitourinary: Reports no additional female genitourinary complaints Musculoskeletal: Musculoskeletal: Reports back pain (Chronic) Integumentary/Breasts: Skin/Breast: Denies rash Neurologic: Reports headache(s) Psychiatric: Psychiatric: Denies confusion Exam Narrative: Exam Narrative: Awake and alert. Const: General: no acute distress HENMT: Mouth: Yes moist mucous membranes Neck: Neck: supple Carotids: no bruits Lymphatic: lymphadenopathy not noted Resp: Auscultation: clear to auscultation bilaterally, no rales and no wheezes Cardio: Rate: regular rate Rhythm: regular rhythm GI: Inspection: non-distended GI Palp: Yes Soft to palpation and No Tenderness to palpation present (GI) Auscultation: normal bowel sounds : Other: Not examined. Skin: General skin exam:
--- NOTE | 2020-04-21 14:30 | WPDGIPROGNO ---
Progress Note: A&P Additional Plan Patient alert and comfortable this morning. No additional bleeding noted. Tolerating diet without difficulty. No abdominal pain. Physical exam reveals her to be alert. Vital signs stable. Lungs are clear. Heart without murmur. Abdomen is obese. Bowel sounds are present soft nontender with no organomegaly. Labs reveal small-bowel series to be unremarkable. EGD yesterday revealed intact gastric bypass. Smaller erosion at the GE junction. Colonoscopy unremarkable. 1. Resolved GI bleeding. Etiology uncertain. But erosion at GE junction is only finding. Plan is to continue proton pump inhibitor. Hold Xarelto and blood thinners for several days at least perhaps 5 days to allow healing of any internal bleeding source. May resume blood thinner subsequently. 2. History of gastric bypass. 3. History of DVT right upper extremity. Four. Bipolar. Plan is for discharge today with PPI for for at least several months if not indefinitely. Hold anticoagulation for 3-5 days. I have discussed this with hospitalist service Dr. stringer who agrees. Subjective Date/time seen: 04/21/20 14:30 Objective Data Vital Signs Vital Signs: Vital Signs - 24 hr 04/20/20 16:00 04/20/20 20:00 04/20/20 22:00 Temperature 37.0 C Pulse Rate 64 84 85 Respiratory Rate 20 Blood Pressure 118/53 L Pulse Oximetry 98 04/21/20 00:00 04/21/20 04:00 04/21/20 06:00 Temperature 37.1 C Pulse Rate 101 H 89 86 Respiratory Rate 20 Blood Pressure 128/40 L Pulse Oximetry 95 04/21/20 08:00 04/21/20 12:00 Temperature Pulse Rate 91 78 Respiratory Rate Blood Pressure Pulse Oximetry Intake/Output Intake/Output: Intake & Output 04/18/20 04/19/20 04/20/20 04/21/20 23:59 23:59 23:59 23:59 Intake Total 5260 4540 500 Output Total 650 800 Balance 4610 4540 -300 Meds/Results Medications: Active Medications Generic Name Dose Route Start Last Admin Trade Name Freq PRN Reason Stop Dose Admin Alprazolam 0.25 mg 04/19/20 11:58 04/20/20 23:55 Xanax PO 0.25 mg Q6H PRN Administration Anxiety Bupropion HCl 450 mg 04/19/20 09:00 04/21/20 08:14 Wellbutrin Xl (24 Hr) PO 450 mg DAILY SANCHEZ Administration Citalopram Hydrobromide 40 mg 04/19/20 21:00 04/20/20 20:38 Celexa PO 40 mg HS SANCHEZ Administration Cyanocobalamin 2,000 mcg 04/19/20 21:00 04/20/20 20:38 Vitamin B-12 Tab PO 2,000 mcg HS SANCHEZ Administration Famotidine 20 mg 04/19/20 21:00 04/21/20 08:14 Pepcid PO 20 mg Q12HR SANCHEZ Administration Gabapentin 300 mg 04/19/20 21:00 04/20/20 20:38 Neurontin PO 300 mg HS SANCHEZ Administration Sodium Chloride 1,000 mls @ 80 mls/hr 04/19/20 06:00 04/20/20 21:16 Normal Saline Iv IV CONT 80 mls/hr .[id number] SANCHEZ Infusion Lamotrigine 100 mg 04/19/20 21:00 04/20/20 20:39 Lamictal PO 100 mg HS SANCHEZ Administration Ondansetron HCl 4 mg 04/19/20 12:03 04/20/20 09:31 Zofran Inj IV PUSH 4 mg Q4H PRN Administration Nausea And Vomiting Ropinirole HCl 1 mg 04/19/20 21:00 04/20/20 20:39 Requip PO 1 mg HS SANCHEZ Administration Simethicone 0.6 ml 04/19/20 09:55 04/19/20 09:56 Mylicon Infants Drops PO 0.6 ml ONCE PRN Administration Gas Discomfort Tolnaftate 1 applic 04/19/20 17:00 04/21/20 08:14 Tolnaftate 1% Powder TOPICAL 1 applic Q12HR SANCHEZ Administration Radiology Results: ITS Impressions Abdomen/Pelvis CT 04/19/20 07:23 IMPRESSION: 1. Small sliding hiatal hernia. Upper GI and Small Bowel X-Ray 04/20/20 15:29 IMPRESSION: 1. No etiology for gastrointestinal hemorrhage. Labs Labs: Laboratory Results - last 24 hr 04/20/20 04/21/20 04/21/20 18:26 06:09 06:09 WBC 6.4 RBC 2.65 L Hgb 8.2 L Hct 25.3 L MCV 95.5 MCH 30.9 MCHC 32.4 RDW 14.7 H Plt Count 171 MPV 11.2 H Immature Gran % (Auto) 0.8 H Ne
--- NOTE | 2020-04-21 18:34 | PM.DS ---
DS: Admitting Diagnosis Admitting Diagnosis Admitting Diagnosis: Gastrointestinal hemorrhage, unspecified DS: Discharge Diagnosis Discharge Diagnosis (1) GI bleed: Qualifiers: GI bleed type/associated pathology: unspecified gastrointestinal hemorrhage type Qualified Code(s): K92.2 - Gastrointestinal hemorrhage, unspecified Code(s): K92.2 - Gastrointestinal hemorrhage, unspecified Status: Acute (2) Esophageal erosions: Code(s): K22.10 - Ulcer of esophagus without bleeding Status: Acute (3) Acute posthemorrhagic anemia: Code(s): D62 - Acute posthemorrhagic anemia Status: Acute (4) Acidosis, lactic: Code(s): E87.2 - Acidosis Status: Acute (5) History of gastric bypass: Code(s): Z98.84 - Bariatric surgery status Status: Acute (6) Pulmonary embolism: Qualifiers: Acute cor pulmonale presence: unspecified Chronicity: unspecified Pulmonary embolism type: unspecified Qualified Code(s): I26.99 - Other pulmonary embolism without acute cor pulmonale Code(s): I26.99 - Other pulmonary embolism without acute cor pulmonale Status: Acute (7) Bipolar 1 disorder: Code(s): F31.9 - Bipolar disorder, unspecified Status: Acute DS: Summary Hospital Course Reason for hospitalization: Diarrhea with black and bloody stools. Hospital Course: Date of Service of Discharge: April 21, 2020. History of Present Illness: Patient is a 59-year-old woman with known previous gastric bypass, bipolar disorder, chronic back issues and history of kidney stones who presented to the emergency room with onset of diarrhea on the day prior to presentation. She reports stool initially was black but by the 3rd episode she noted red blood in the stool. She reports ongoing problems with her back within the past week. As result of pain, she was started on a prednisone taper by her primary physician. She reports 4 days into the prednisone taper she developed the diarrhea. She also reports a soreness and pressure in her abdomen feeling as though she has been ?punched in the stomach?. She does report nausea but no vomiting. No chest pain or shortness of breath. No hematuria or dysuria although she does have a longstanding history of frequent urination with incontinence. She does mention having temperature up to 100.7 on the day of presentation as well as an odd taste in her mouth. She is on Xarelto for history of pulmonary embolism x2. In the emergency room, findings were concerning for GI bleed. She was therefore placed in observation for further evaluation and treatment. Course in Hospital: She was placed on the medical floor where she remained for the duration of her stay. Xarelto and prednisone were held on admission. She was seen in consultation by Gastroenterology. She was taken to the GI lab on 04/19/2020 with EGD performed by Dr. Duran with small esophageal erosions seen. No active bleeding was noted. She was continued on oral Pepcid. With no with standing findings on EGD, decision was made to proceed with colonoscopy which was completed on 04/20/2021 with only non bleeding internal hemorrhoid seen. A small-bowel follow-through subsequently was unremarkable. Patient was allowed to eat and advanced to a regular diet without any difficulties. She had no further blood in stools. No nausea or vomiting. No abdominal pain. She additionally had no fever while in hospital. Hemoglobin did drop from admission but this was felt to be dilutional in addition to the bleeding episode. Hemoglobin was stable at 8.2 by discharge with plan to follow as an outpatient. Patient was noted to have mild elevation of lactic acid on admission. This was felt to be due to dehydration and did resolve with IV fluids. No sign of bacterial infection. She was continued on her home alprazolam, bupropion and citalopram for known bipolar disorder once allowed oral intake. There was no
== END 2020-04-21 15:15 | disposition home or self-care (01) ==
LOC: ANHED 06:04 → ANH3MEDSUR 07:40
PROVIDERS: Family Medicine; Internal Medicine Gastroenterology; Physician Assistant; Admitting Provider Internal Medicine; Emergency Provider Emergency Medicine; PCP Family Medicine Adolescent Medicine; Visit Provider Hospitalist
PROC: 0DJ08ZZ Inspection of Upper Intestinal Tract, Via Natural or Artificial Opening Endoscopic (ICD-10-PCS; CPT 43235; principal; 2020-04-19 09:00)
PROC: 0DJD8ZZ Inspection of Lower Intestinal Tract, Via Natural or Artificial Opening Endoscopic (ICD-10-PCS; CPT 45378; principal; 2020-04-20 11:30)
DX: K92.1 Melena (principal); D62 Acute posthemorrhagic anemia; K22.10 Ulcer of esophagus without bleeding; K44.9 Diaphragmatic hernia without obstruction or gangrene; K64.8 Other hemorrhoids; E87.2 Acidosis; Z98.84 Bariatric surgery status; I26.99 Other pulmonary embolism without acute cor pulmonale; F31.9 Bipolar disorder, unspecified; N20.0 Calculus of kidney; E66.01 Morbid (severe) obesity due to excess calories; Z68.41 Body mass index [BMI] 40.0-44.9, adult; G62.9 Polyneuropathy, unspecified; Z79.01 Long term (current) use of anticoagulants; Z87.891 Personal history of nicotine dependence; Z86.718 Personal history of other venous thrombosis and embolism
CPT/HCPCS: 43235; 45378; 36415; 74177; 74250; 80048; 80053; 81003; 82728; 83540; 83550; 83605; 83690; 83735; 84466; 85014; 85018; 85025; 85055; 85610; 85730; 86850; 86900; 86901; 93005; 96361; 96365; 96375; 96376; 99285; A9270; C9113; G0378; J0131; J2001; J2270; J2405; J2704; J7030; J7120; Q9967

== ENCOUNTER 2020-10-07 18:04 | Emergency (ER) | payer OTHER, BC, SELFPAY ==
--- NOTE | ~2020-10-07 | CT_ITS ---
EXAMINATION: CT brain wo con, CT facial bones wo con DATE: 10/07/2020 18:59 INDICATION: Head and facial injury. TECHNIQUE: 1. Computed tomography (CT) of the head was performed without intravenous contrast. Sagittal and kerri nal reconstructions were performed. The mA was adjusted according to patient size. Iterative reconstr uction technique was employed. The dose-length product was 274.28 mGy-cm. 2. CT of the maxillofacial bones was performed without intravenous contrast. Sagittal and coronal rec onstructions were performed. Automated exposure control and iterative reconstruction technique were e mployed. The dose-length product was 605.33 mGy-cm. COMPARISON: head CT dated 08/03/16 FINDINGS: Head CT: No fracture. No acute intracranial hemorrhage, acute infarction or abnormal extra axial fluid collect ion. There is mild scattered white matter hypoattenuation consistent with chronic small vessel ischem ic disease. Symmetric prominence of the sulci and subarachnoid spaces overlying the convexities consi stent with mild age-appropriate diffuse cerebral volume loss. Ventricles are normal and symmetric. N o mass/mass effect. Mastoid air cells and middle ear cavities are clear. Minimal scattered intracrani al calcified cerebral atherosclerosis is noted. Maxillofacial CT: Bilateral temporomandibular joints are normal alignment with mild osteoarthritis. No maxillofacial fr actures. Specifically the carrillo of the orbits and paranasal sinuses, the mandible, pterygoid plates a nd second metacarpals are intact. Changes of right intraocular lens replacement. Minimal mucosal thic kening the left ethmoid sinus. Anterior spinal fusion with bone graft cages and anterior plate-screw fixation at C3-C4 and C4-C5. IMPRESSION: 1. No calvarial or maxillofacial fractures. 2. No acute intracranial process. 3. Age-related changes in the brain including mild diffuse volume loss and mild scattered white matte r hypoattenuation consistent with chronic small vessel ischemic disease. Reviewed, dictated and finalized at [facility]. [employer] IMPRESSION: 1. No calvarial or maxillofacial fractures. 2. No acute intracranial process. 3. Age-related changes in the brain including mild diffuse volume loss and mild scattered white matter hypoattenuation consistent with chronic small vessel is chemic disease.
--- NOTE | ~2020-10-07 | CT_ITS ---
EXAMINATION: CT lumbar spine wo con DATE: 10/07/2020 18:59 INDICATION: Low back pain post fall TECHNIQUE: Computed tomography (CT) of the lumbar spine was performed without intravenous contrast. A utomated exposure control and iterative reconstruction technique were employed. The dose-length produ ct was 1416.69 mGy-cm. COMPARISON: CT: None and pelvis dated 04/19/2020 FINDINGS: Postoperative change of prior L5 laminectomy. Mild lumbar levocurvature. Unchanged 3 mm retrolisthesi s L4 on L5 and 5 mm anterolisthesis L5 on S1. Unchanged minimal anterior wedging at T11 and T12. Lumb ar vertebral body heights are normal. Chronic right L5 pars interarticularis defect. No acute fractur es. Moderate disc height loss at T10-T11, L4-L5 and L5-S1. Mild to moderate disc height loss at L3-L4 and mild disc height loss at T11-T12 through L2-L3. Atherosclerotic calcification is at the abdomina l aorta and bilateral iliac arteries. The following disc levels are specifically discussed: T11-T12: Posterior disc osteophyte complex. There is mild right and moderate left facet joint osteoar thritis. There is mild left and mild to moderate right neural foraminal stenosis. There is mild centr al canal stenosis. T12-L1: Small posterior disc osteophyte complex. There is mild right and moderate left facet joint os teoarthritis. There is mild left neural foraminal stenosis. There is mild central canal stenosis. L1-L2: Posterior disc osteophyte complex. There is mild to moderate bilateral facet joint osteoarthri tis. There is mild to moderate bilateral neural foraminal stenosis. There is mild to moderate central canal stenosis. L2-L3: Large posterior disc osteophyte complex. There is mild to moderate bilateral facet joint osteo arthritis. There is moderate left and mild to moderate right neural foraminal stenosis. There is nestor re central canal stenosis. L3-L4: Large posterior disc osteophyte complex. There is mild left and moderate right facet joint ost eoarthritis. There is moderate right and mild to moderate left neural foraminal stenosis. There is mo derate to severe central canal stenosis. L4-L5: Large posterior disc osteophyte complex. There is severe bilateral facet joint osteoarthritis. There is moderate right and moderate to severe left neural foraminal stenosis. There is severe centr al canal stenosis. L5-S1: Disc is bulging. There is severe bilateral facet joint osteoarthritis. There is moderate left and moderate to severe right neural foraminal stenosis. Posterior decompression with no significant c entral canal stenosis. IMPRESSION: 1. Severe lumbar spondylosis with change of prior L5 laminectomy. No acute osseous abnormality. Reviewed, dictated and finalized at [facility]. HIATRIC LPN IMPRESSION: 1. Severe lumbar spondylosis with change of prior L5 laminectomy. No acute osse ous abnormality.
[2020-10-07 18:09] VITALS: BP 158/63; PULSE 67; RESP 14; TEMP 36.7; O2SAT 96
[2020-10-07 18:24] VITALS: BP 128/67; PULSE 69; RESP 12; O2SAT 99
--- NOTE | 2020-10-07 18:45 | ED.HEATRA ---
HPI - Head Injury General Chief complaint: Head Injury Stated complaint: STRUCK IN FACE WITH BASKETBALL Time Seen by Provider: 10/07/20 18:07 Source: patient Mode of arrival: EMS Limitations: no limitations History of Present Illness HPI Narrative: This is a 60 year old female that presents to the ER after a head injury today. Reports she was struck in the face with a basketball at work. Reports she does not think that she lost consciousness, but it did cause her to fall. She is unsure if she hit her head. Reports since she has had a headache and nasal pain. Does report she is on Xarelto for history of PE. Also reports pain in her low back that has been ongoing since this morning. Denies vision changes, vomiting, numbness, or weakness. Related Data Home Medications Medication Instructions Recorded Confirmed Xarelto 10 mg PO HS 04/19/20 04/19/20 alprazolam 0.25 mg PO Q6H PRN 04/19/20 04/19/20 bupropion HCl 450 mg PO DAILY 04/19/20 04/19/20 citalopram 40 mg PO HS 04/19/20 04/19/20 cyanocobalamin (vitamin B-12) 2,000 mcg PO HS 04/19/20 04/19/20 ergocalciferol (vitamin D2) 80,000 unit PO WEEKLY 04/19/20 04/19/20 gabapentin 300 mg PO HS 04/19/20 04/19/20 hydrocodone-acetaminophen 0.5 tablet PO Q4H PRN 04/19/20 04/19/20 lamotrigine 100 mg PO HS 04/19/20 04/19/20 ropinirole 1 mg PO HS 04/19/20 04/19/20 Allergies Allergy/AdvReac Type Severity Reaction Status Date / Time morphine Allergy Severe CHEST Verified 04/20/20 12:38 PAIN, VIOLENT NAUSEA AND VOMITING Review of Systems Review of Systems: Narrative: CONSTITUTIONAL: Denies fever EYES: Denies visual changes GASTROINTESTINAL: Denies vomiting MUSCULOSKELETAL: Reports back pain, joint pain, and myalgia. NEUROLOGIC: Reports headache. Denies numbness, or weakness. All systems reviewed & are unremarkable except as noted in HPI and below PMFSH Past Medical History Medical History (Updated 10/07/20 @ 19:48 by Cecy L. Lanza, PA-C) Bipolar 1 disorder Deep vein thrombophlebitis of leg Esophageal erosions GI bleed Morbid obesity with BMI of 40.0-44.9, adult Peripheral neuropathy Pulmonary embolism Surgical History Surgical History H/O laminectomy H/O: hysterectomy History of appendectomy History of bladder suspension procedure History of gastric bypass Family History Family History Father Hypertension Family history of elevated blood lipids Family history of diabetes mellitus in first degree relative Family history of coronary artery disease Patient's father is Family history of malignant neoplasm of esophagus Mother Hypertension Family history of elevated blood lipids Family history of diabetes mellitus in first degree relative Family history of coronary artery disease, Onset Age: 55 Patient's mother is Family history of congestive heart failure Sibling Hypertension Family history of elevated blood lipids Grandparent Cerebrovascular accident, Onset Age: 79 Carcinoma of colon, Onset Age: 35 Other Family history of tuberculosis Social History Social History Social History: Patient is . She lives with her . No children. 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 Patient has had no alcohol for the past 33 years. She is a full code. She designates her as her surrogate decision maker. Smoking packs per day: 2 Smoking cigarettes per day: 40.0 Years smoked: 20 Smoking pack-years: 40.00 Smoking status: Former smoker Second hand tobacco smoke exposure: No Smoking end date: 11/16/02 Alcohol intake: former Substance use: former Other substance usage details: Used speed in her youth. Additional living
--- NOTE | 2020-10-07 18:56 | PC.NURSE ---
Pt to CT scan via stretcher.
[2020-10-07] MEDS: ACETAMINOPHEN 500 MG TABLET 1000 MG PO (19:01)
[2020-10-07] MEDS: diazePAM INJ (*CRX) 10 MG/2 ML SYRINGE 5 MG IM (19:01)
[2020-10-07 20:07] VITALS: BP 150/60; PULSE 60; RESP 18; TEMP 36.6; O2SAT 99
== END 2020-10-07 20:09 | disposition home or self-care (01) ==
PROVIDERS: Emergency Provider Emergency Medicine; PCP Family Medicine Adolescent Medicine
DX: S09.93XA Unspecified injury of face, initial encounter (principal); M54.5 Low back pain; F31.9 Bipolar disorder, unspecified; Z86.718 Personal history of other venous thrombosis and embolism; Z86.711 Personal history of pulmonary embolism; G62.9 Polyneuropathy, unspecified; E66.01 Morbid (severe) obesity due to excess calories; Z68.39 Body mass index [BMI] 39.0-39.9, adult; Z98.84 Bariatric surgery status; Z87.891 Personal history of nicotine dependence; M47.816 Spondylosis without myelopathy or radiculopathy, lumbar region; W21.05XA Struck by basketball, initial encounter; Z79.01 Long term (current) use of anticoagulants
CPT/HCPCS: 70450; 70486; 72131; 96372; 99284; A9270; J3360

== ENCOUNTER 2021-08-11 11:00 | Outpatient (CLI) | payer BC, SELFPAY ==
--- NOTE | ~2021-08-11 | XR_ITS ---
EXAMINATION: XR hip LT 2V w AP pelvis DATE: 08/11/2021 11:27 INDICATION: Left hip pain TECHNIQUE: Anteroposterior view of the pelvis and anteroposterior and frog-leg lateral views of the l eft hip were obtained. COMPARISON: CT abdomen and pelvis dated 04/19/2020 FINDINGS: Bone alignment is normal. No fracture or suspected avascular necrosis. Mild bilateral hip osteoarthri tis. Bilateral anterior os acetabula. Severe lower lumbar spondylosis. Moderate bilateral sacroiliac osteoarthritis. IMPRESSION: 1. Bilateral mild hip osteoarthritis and anterior os acetabula. 2. Severe lower lumbar spondylosis. Reviewed, dictated and finalized at location A.
== END 2021-08-11 11:01 | disposition home or self-care (01) ==
LOC: ANHIMG 11:04
PROVIDERS: PCP Family Medicine Adolescent Medicine; Visit Provider Physician Assistant
DX: M16.0 Bilateral primary osteoarthritis of hip (principal); M47.896 Other spondylosis, lumbar region
CPT/HCPCS: 73502

== ENCOUNTER 2021-10-02 21:07 | Emergency (ER) | payer OTHER, BC, SELFPAY ==
--- NOTE | ~2021-10-02 | XR_ITS ---
EXAMINATION: XR hand RT min 3V DATE: 10/02/2021 21:19 INDICATION: Right thumb injury TECHNIQUE: Posteroanterior, oblique and lateral views of the right hand were obtained. COMPARISON: None. FINDINGS: Small fracture at the radial base of the first proximal phalanx consistent with avulsion of the footp late of the radial collateral ligament. The fragment is mildly distracted proximally and rotated by a pproximately 90 degrees. There is approximately 1 mm lucent fracture gap at the radial margin of the articular surface. No other fractures identified. Mild polyarticular osteoarthritis involving multipl e joints in the right hand and wrist. Small degenerative loose body versus heterotopic ossicle near t he tip of the ulnar styloid process. IMPRESSION: 1. Mild displacement and rotation of a small avulsion fracture involving the first proximal phalangea l footplate of the radial collateral ligament of the first metacarpal phalangeal joint. Reviewed, dictated and finalized at location A. ITTER IMPRESSION: 1. Mild displacement and rotation of a small avulsion fracture involving the fi rst proximal phalangeal footplate of the radial collateral ligament of the firs t metacarpal phalangeal joint.
--- NOTE | 2021-10-02 21:13 | PC.NURSE ---
Pt to XY at this time.
[2021-10-02 21:25] VITALS: BP 114/67; PULSE 72; RESP 18; TEMP 36.7; O2SAT 100
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
--- NOTE | 2021-10-12 19:33 | PC.NURSE ---
LATE ENTRY This note is being entered to document information to the patient's record. The following information was omitted on [10/03/21], by [ vorsheila from dr tesfaye for thumb spica].
== END 2021-10-02 22:25 | disposition home or self-care (01) ==
PROVIDERS: Emergency Provider Family Medicine; PCP Family Medicine Adolescent Medicine
DX: S62.514A Nondisplaced fracture of proximal phalanx of right thumb, initial encounter for closed fracture (principal); Z87.891 Personal history of nicotine dependence; F31.9 Bipolar disorder, unspecified; Y04.0XXA Assault by unarmed brawl or fight, initial encounter
CPT/HCPCS: 29125; 73130; 99284

== ENCOUNTER 2021-10-25 14:34 | Outpatient (RCR) | payer OTHER, BC, SELFPAY ==
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
--- NOTE | 2021-11-19 10:13 | PCOTNOTE ---
Addendum entered by Nikita Longoria, WALLACER/Coco, T 11/28/21 08:31: Another appointment was not scheduled at that time. Original Note: Late Note: Patient called and cancelled re-evaluation on 11/14 due to having to work. Another appointment was scheduled at that time. Called the patient today and left a voicemail about rescheduling the re-evaluation.
--- NOTE | 2021-11-28 08:33 | PCOTNOTE ---
Never heard back from patient after calling her last week. Attempted one last time today and she did not answer. Left voice mail stating to call back by tomorrow to be rescheduled or she will be discharged. Informed her to follow up with Dr. Bentley if she needs a new therapy order.
--- NOTE | 2021-11-29 15:51 | PCOTNOTE ---
OCCUPATIONAL THERAPY DISCHARGE NOTIFICATION 11/29/21 Patient:Hussain Hankins Date of :1960 Patient has not returned for any further treatments since 10/25/2021, therefore she will be discharged at this time. Patient?s initial visit was on 10/25/2021 where she was evaluated for right thumb radial collateral ligament sprain with avulsion fx. A short thumb spica splint was fabricated and issued that date with the plan to follow up in 3 weeks. She cancelled the follow up and we have been unsuccessful at contacting her since. She will unfortunately be discharged at this time. The goals have been not addressed. Thank you for referring this patient to [facility]. Please review, sign, date and return this discharge summary FABIAN. I have been updated about the patient's current status and I agree with discharge from the above service at this time. Referring Physician Date Referring Provider: Jonathon Bentley MD
== END 2022-01-08 07:30 | disposition home or self-care (01) ==
LOC: ANHOT 14:34
PROVIDERS: PCP Family Medicine Adolescent Medicine; Visit Provider Plastic Surgery
DX: S53.431D Radial collateral ligament sprain of right elbow, subsequent encounter (principal)
CPT/HCPCS: 97110; 97165; L3921

== ENCOUNTER 2021-11-04 07:33 | Emergency (ER) | payer BC, SELFPAY ==
--- NOTE | ~2021-11-04 | CT_ITS ---
EXAMINATION: CT abdomen pelvis wo con DATE: 11/04/2021 08:37 INDICATION: Left flank pain. TECHNIQUE: Computed tomography (CT) of the abdomen and pelvis was performed without intravenous contr ast. Automated exposure control and iterative reconstruction technique were employed. The dose-length product was 1145.11 mGy-cm. COMPARISON: CT abdomen and pelvis 04/19/2020 FINDINGS: The visualized portions of the lung bases demonstrate mild atelectasis. Again seen are innu merable nodules in the lungs measuring 3 mm or less, likely granulomatous disease. No pleural effusio n. The heart size is normal. There are coronary artery calcifications. No pericardial effusion. There is a small sliding hiatal hernia. There are surgical changes of the stomach. The liver is normal. Th ere are changes of cholecystectomy. The spleen, pancreas, adrenal glands, and kidneys are normal. The re is a 4 mm stone in the bladder. There are no dilated loops of bowel. The appendix is not visualize d. There are no pathologically enlarged lymph nodes. There is no free intraperitoneal fluid. There is severe lumbar spondylosis. IMPRESSION: 1. 4 mm stone in the bladder. 2. Small sliding hiatal hernia. Reviewed, dictated and finalized at location A. RT ANALYST
[2021-11-04 07:42] VITALS: BP 115/86; PULSE 88; RESP 13; TEMP 36.4; O2SAT 99
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
[2021-11-04] MEDS: HYDROmorphone HCL INJ (*CRX) 1 MG/ML SYR 0.5 MG IV PUSH (09:02)
[2021-11-04] MEDS: ONDANSETRON INJ 4 MG/2 ML VIAL IV PUSH (09:02)
[2021-11-04] MEDS: SODIUM CHLORIDE 0.9% IV 1,000 ML 999 ML IV CONT (09:02)
[2021-11-04] MEDS: TAMSULOSIN HCL 0.4 MG CAPSULE PO (09:05)
[2021-11-04 09:17] LABS: Basophils Absolute Auto 0.1 K/mm3 (0.0-0.1); Basophils Percent Auto 1.1 % (0.2-1.2); Eosinophils Absolute Auto 0.2 K/mm3 (0-0.3); Eosinophils Percent Auto 2.7 % (0-4.4); Hematocrit 38.7 % (37.0-47.0); Hemoglobin 12.6 g/dL (12.0-15.0); Immature Granulocyte Absolute 0.02 K/mm3 (0.00-0.031); Immature Granulocyte Percent A 0.3 % (0-0.5); Lymphocytes Absolute Auto 2.22 K/mm3 (0.9-3.2); Lymphocytes Percent Auto 31.7 % (18.3-44.2); Mean Corpuscular HGB Conc 32.6 g/dl (32-36); Mean Corpuscular Hemoglobin 29.6 pg (26-34); Mean Corpuscular Volume 90.8 fl (80-100); Monocytes Absolute Auto 0.7 K/mm3 (0.1-0.6); Monocytes Percent Auto 9.9 % (2.6-8.5); Neutrophils Absolute Auto 3.8 K/mm3 (1.3-6.7); Neutrophils Percent Auto 54.3 % (45.5-73.1); Platelet Count Result 293 k/mm3 (150-375); Red Blood Count 4.26 M/mm3 (4.2-5.4)
[2021-11-04 09:19] LABS: Alanine Aminotransferase 18 U/L (4-35); Albumin Level 4.2 g/dL (3.5-5.1); Alkaline Phosphatase 110 U/L (38-126); Anion Gap 5 mmol/L (8-16); Aspartate Amino Transferase 27 U/L (14-36); Bilirubin,Total 0.6 mg/dL (0.2-1.3); Blood Urea Nitrogen 19 mg/dL (7-17); Calcium 9.3 mg/dL (8.4-10.2); Carbon Dioxide 25 mmol/L (22-30); Chloride 107 mmol/L (98-107); Estimated CRCL calculation 93 ml/min; Estimated Glomerular Filt Rate > 60; Glucose 91 mg/dL (65-110); Lipase 145 U/L (23-300); Potassium 3.5 mmol/L (3.4-5.0); Sodium 137 mmol/L (137-145)
[2021-11-04 09:30] LABS: Add Urine Microscopic? YES; Appearance Urine Cloudy (Clear); Bacteria Urine 4+ /hpf; Bilirubin Urine Negative (Negative); Blood Urine Negative (Negative); Color Urine Yellow (Yellow); Glucose Urine UA Negative (Negative); Ketones Urine Negative (Negative); Leukocyte Esterase Ur 1+ LEU/UL (Negative); Mucus Urine Rare /lpf; Nitrate Urine Negative (Negative); Protein Urine Negative (Negative); Specific Grav Ur 1.024 (1.001-1.035); Squamous Epithelial Cell Urine Few /hpf (Few); WBC Urine 31-50 /hpf
[2021-11-04 10:10] VITALS: PULSE 66; RESP 16; O2SAT 100
== END 2021-11-04 10:10 | disposition home or self-care (01) ==
PROVIDERS: Emergency Provider Emergency Medicine; PCP Family Medicine Adolescent Medicine
DX: N21.0 Calculus in bladder (principal); K22.10 Ulcer of esophagus without bleeding; E66.01 Morbid (severe) obesity due to excess calories; Z68.41 Body mass index [BMI] 40.0-44.9, adult; G62.9 Polyneuropathy, unspecified; Z86.718 Personal history of other venous thrombosis and embolism; F31.9 Bipolar disorder, unspecified; Z86.711 Personal history of pulmonary embolism; Z98.84 Bariatric surgery status; Z87.891 Personal history of nicotine dependence; K44.9 Diaphragmatic hernia without obstruction or gangrene
CPT/HCPCS: 36415; 74176; 80053; 81001; 83690; 85025; 87077; 87086; 87186; 96361; 96374; 96375; 99284; A9270; J1170; J2405; J7030

== ENCOUNTER 2022-01-10 15:53 | Emergency (ER) | payer OTHER, BC, SELFPAY ==
--- NOTE | ~2022-01-10 | CT_ITS ---
EXAMINATION: CT brain wo con INDICATION: Head injury COMPARISON: 10/07/2020 TECHNIQUE: Standard unenhanced head CT. The dose-length product (DLP) was 605.33 mGy-cm. The mA was a djusted according to patient size. Iterative reconstruction technique was employed. FINDINGS: There is no intracranial hemorrhage, acute infarction, or abnormal mass lesion. The ventric les are normal. There is no abnormal mass effect or midline shift. The melvin-white matter differentiat ion is normal. The basal cisterns are patent. There is a left frontoparietal scalp hematoma. The orbi ts are normal. The paranasal sinuses, mastoids and calvarium are normal. IMPRESSION: 1. Left frontoparietal scalp hematoma without acute intracranial abnormality. Reviewed, dictated and finalized at location F. 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
--- NOTE | ~2022-01-10 | XR_ITS ---
EXAMINATION: XR ankle RT 2V DATE: 01/10/2022 16:54 INDICATION: Anterolateral right ankle pain post fall TECHNIQUE: Anteroposterior and lateral views of the right ankle were obtained. COMPARISON: None. FINDINGS: Alignment is normal. No fracture. Sclerotic bone island at the distal right tibia. Joint spaces are well maintained. No ankle joint effusion. Moderate-sized plantar calcaneal spur. The soft tissues are unremarkable. IMPRESSION: 1. No acute osseous abnormality. Reviewed, dictated and finalized at location A. ATED PAD BUFFER
--- NOTE | ~2022-01-10 | XR_ITS ---
EXAMINATION: XR hand RT min 3V, XR wrist RT min 3V DATE: 01/10/2022 16:54 INDICATION: Right hand and wrist pain post ground-level fall TECHNIQUE: 1. Posteroanterior, ulnar deviation, oblique, and lateral views of the right wrist were obtained. 2. Dorsal palmar, oblique and lateral views of the right hand were obtained. COMPARISON: None. FINDINGS: Small avulsion fracture fragment at the radial base of the first proximal phalanx involving the footp late of the radial collateral ligament. The fragment is minimally distracted but with approximately 9 0 degrees radial rotation. No other fractures identified. Alignment of the hand and wrist is otherwis e normal. 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 IMPRESSION: 1. Small minimally distracted but rotated fracture fragment involving the first proximal phalangeal f ootplate of the radial collateral ligament of the first metacarpal phalangeal joint. 2. Polyarticular osteoarthritis, moderate at the first interphalangeal joint and mild at many of the remaining joints of the right hand and wrist. Reviewed, dictated and finalized at location A. ERT PIANIST IMPRESSION: 1. Small minimally distracted but rotated fracture fragment involving the first proximal phalangeal footplate of the radial collateral ligament of the first m etacarpal phalangeal joint. 2. Polyarticular osteoarthritis, moderate at the first interphalangeal joint an d mild at many of the remaining joints of the right hand and wrist.
--- NOTE | ~2022-01-10 | XR_ITS ---
EXAMINATION: XR sacrum coccyx min 2V INDICATION: Pain after fall TECHNIQUE: Three views of the sacrum and coccyx are obtained. COMPARISON: CT, 11/04/2021 FINDINGS: There is no fracture. There is severe spondylosis of the lower lumbar spine. Calcified athe rosclerosis is noted. There is mild osteoarthritis of the hips. IMPRESSION: 1. No acute osseous abnormality. Reviewed, dictated and finalized at location F. 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
--- NOTE | ~2022-01-10 | XR_ITS ---
EXAMINATION: XR shoulder LT min 2V DATE: 01/10/2022 16:54 INDICATION: Left shoulder pain post fall TECHNIQUE: AP internally and externally rotated, AP oblique externally rotated and transscapular Y vi ews of the left shoulder were obtained. COMPARISON: None FINDINGS: Normal alignment. No fracture.Moderate left acromioclavicular osteoarthritis. Mild left glenohumeral osteoarthritis. Plate and screw fixation for anterior spinal fusion in the mid to lower cervical spi ne. Moderate thoracic spondylosis. Visualized portion of the lungs are clear. Soft tissues are unrema rkable. IMPRESSION: Moderate left acromioclavicular and mild glenohumeral osteoarthritis. No acute osseous abnormality. Reviewed, dictated and finalized at location A. T OUTPUT CLERK
[2022-01-10 15:57] VITALS: BP 116/87; PULSE 72; RESP 18; TEMP 36.7; O2SAT 100
--- NOTE | 2022-01-10 16:06 | ED.FALL ---
HPI - Fall General Chief Complaint: Fall Stated Complaint: fall Time Seen by Provider: 01/10/22 15:59 Source: patient, EMS and RN notes reviewed Mode of arrival: EMS Limitations: no limitations History of Present Illness HPI Narrative: 61-year-old female presenting to the emergency department for evaluation after injury sustained after having a ground-level fall. Patient states approximate 1 hour prior to arrival she was attempting to unlock a door when she began to drop all of the items. Patient states that this caused her to injure her right ankle causing her to fall onto her right side and did strike her head. Patient is suspicious that she did have loss of consciousness for a brief amount of time. Upon arrival to emergency department patient is complaining of headache, left shoulder pain, right ankle pain, right wrist and thumb pain, and right buttock/sacral pain. Related Data Home Medications Medication Instructions Recorded Confirmed Xarelto 10 mg PO HS 04/19/20 04/19/20 alprazolam 0.25 mg PO Q6H PRN 04/19/20 04/19/20 bupropion HCl 450 mg PO DAILY 04/19/20 04/19/20 citalopram 40 mg PO HS 04/19/20 04/19/20 cyanocobalamin (vitamin B-12) 2,000 mcg PO HS 04/19/20 04/19/20 ergocalciferol (vitamin D2) 80,000 unit PO WEEKLY 04/19/20 04/19/20 gabapentin 300 mg PO HS 04/19/20 04/19/20 hydrocodone-acetaminophen 0.5 tablet PO Q4H PRN 04/19/20 04/19/20 lamotrigine 100 mg PO HS 04/19/20 04/19/20 ropinirole 1 mg PO HS 04/19/20 04/19/20 Allergies Allergy/AdvReac Type Severity Reaction Status Date / Time morphine Allergy Severe CHEST Verified 11/04/21 07:47 PAIN, VIOLENT NAUSEA AND VOMITING Review of Systems Review of Systems: CONSTITUTIONAL: Denies fever, chills, or sweats. EYES: Denies visual changes, redness, or discharge. ENT: Denies rhinorrhea, congestion, sore throat, or otalgia. CARDIOVASCULAR: Denies chest pain, palpitations, or edema. RESPIRATORY: Denies cough or dyspnea. GASTROINTESTINAL: Denies abdominal pain, nausea, vomiting, or diarrhea. GENITOURINARY: Denies dysuria or hematuria. SKIN: Denies rash or itching. MUSCULOSKELETAL: Left shoulder pain right wrist pain right thumb pain right buttock/sacral pain and right ankle pain NEUROLOGIC: Headache with no associated numbness or weakness PSYCHIATRIC: Denies anxiety or depression. [facility] Past Medical History Medical History Bipolar 1 disorder Deep vein thrombophlebitis of leg Esophageal erosions GI bleed Morbid obesity with BMI of 40.0-44.9, adult Peripheral neuropathy Pulmonary embolism Surgical History Surgical History H/O laminectomy H/O: hysterectomy History of appendectomy History of bladder suspension procedure History of gastric bypass Family History Family History Father Hypertension Family history of elevated blood lipids Family history of diabetes mellitus in first degree relative Family history of coronary artery disease Patient's father is Family history of malignant neoplasm of esophagus Mother Hypertension Family history of elevated blood lipids Family history of diabetes mellitus in first degree relative Family history of coronary artery disease, Onset Age: 55 Patient's mother is Family history of congestive heart failure Sibling Hypertension Family history of elevated blood lipids Grandparent Cerebrovascular accident, Onset Age: 79 Carcinoma of colon, Onset Age: 35 Other Family history of tuberculosis Social History Social History Social History: Patient is . She lives with her . No children. 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 Patient has had no alcohol for the past 33
[2022-01-10] MEDS: HYDROcodone/acetaminophen (*CRX) 5-325 MG TABLET 1 TAB PO (17:08)
[2022-01-10 17:27] VITALS: BP 127/75; PULSE 62; RESP 18; O2SAT 100
--- NOTE | 2022-01-17 08:14 | PC.NURSE ---
On 01/10/2022 Thumb spica was applied to Left Hand/wrist. Pt had good cap refill and +PMS Pt tolerated well
== END 2022-01-10 19:08 | disposition home or self-care (01) ==
PROVIDERS: Emergency Provider Emergency Medicine; PCP Family Medicine Adolescent Medicine
DX: S00.03XA Contusion of scalp, initial encounter (principal); S93.401A Sprain of unspecified ligament of right ankle, initial encounter; S69.91XA Unspecified injury of right wrist, hand and finger(s), initial encounter; S30.0XXA Contusion of lower back and pelvis, initial encounter; F31.9 Bipolar disorder, unspecified; E66.01 Morbid (severe) obesity due to excess calories; Z68.38 Body mass index [BMI] 38.0-38.9, adult; G62.9 Polyneuropathy, unspecified; Z86.718 Personal history of other venous thrombosis and embolism; Z86.711 Personal history of pulmonary embolism; Z79.01 Long term (current) use of anticoagulants; Z98.84 Bariatric surgery status; Z87.891 Personal history of nicotine dependence; M19.041 Primary osteoarthritis, right hand; M19.012 Primary osteoarthritis, left shoulder; W18.39XA Other fall on same level, initial encounter
CPT/HCPCS: 29125; 70450; 72220; 73030; 73110; 73130; 73600; 99284; A9270

== ENCOUNTER → 2025-11-14 14:18 | Outpatient (CLI) | payer BC, SELFPAY ==
--- NOTE | ~2025-11-14 | XR_ITS ---
Examination: XR chest 2V Clinical History: R05.3 - Chronic cough Comparison: None Technique: PA and Lateral Findings: Cardiomediastinal silhouette normal size and configuration. A few small probable nodules. No acute bony abnormality. Mild apparent increased sclerosis left rib 7. IMPRESSION: 1. A few small probable pulmonary nodules. Recommend CT chest. 2. No other acute abnormality. Reviewed, dictated and finalized at location R. 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
== END ==
PROVIDERS: PCP Nurse Practitioner Family; Visit Provider Nurse Practitioner Family
DX: R91.8 Other nonspecific abnormal finding of lung field (principal); R05.3 Chronic cough; B94.8 Sequelae of other specified infectious and parasitic diseases
CPT/HCPCS: 71046